=== PATIENT | male | born 1970 | race Caucasian/White ===

== ENCOUNTER 2016-12-11 18:41 | Emergency (ER) | payer SELFPAY ==
[~2016-12-11] VITALS: Ht 180.3 cm; Wt 100.0 kg
[~2016-12-11 18:41] MED LIST: QUET1TAB65 PO
[2016-12-11 18:42] VITALS: BP 174/109; PULSE 89; RESP 16; TEMP 98.3; O2SAT 98
--- NOTE | 2016-12-11 19:18 | PD ---
HPI Chief Complaint: Psychiatric Symptoms Time Seen by Provider: 18:54 Travel History International Travel<30 days: No Contact w/Intl Traveler<30days: No Traveled to known affect area: No History of Present Illness HPI 46-year-old male here for evaluation because he believes that there is a wire in his ear that extends down his neck. He tells me that this wire was placed by the [employer] 15 years ago, however he only found out about it today. He states he knows that there is a wire in his ear because he hears voices in his left ear that told him to go to the emergency department to have it removed. He also tells me that there are cameras outside videotaping him. When questioned about his psychiatric history, the patient is denying any history, however chart review shows that the patient was here in 2010 requesting a refill for cervical. He admits to taking Seroquel the past, however states he has not been on it for a long time. He admits to smoking marijuana occasionally and drinking alcohol occasionally, denies any other illicit drug use. He denies suicidal or homicidal ideation. Patient also became very defensive when questioned about psychiatric history stating that his symptoms are real and that there is really a wire in his neck, and that they are not psychiatric related. PFSH Past Medical History Medical History: Denies Significant Hx Diminished Hearing: No Tetanus Vaccination: Unknown Influenza Vaccination: No Past Surgical History Surgical History: No Previous Surgery Social History Alcohol Use: No Tobacco Use: No Substance Use: No Allergies-Medications (Allergen,Severity, Reaction): Coded Allergies: No Known Allergies (Verified , 12/12/10) Reported Meds & Prescriptions Reported Meds & Active Scripts Active Seroquel (Quetiapine Fumarate) 200 Mg Tab 200 Mg PO HS 21 Days Seroquel (Quetiapine Fumarate) 200 Mg Tab 200 Mg PO HS Review of Systems Except as stated in HPI: all other systems reviewed are Neg Physical Exam Narrative GENERAL: Well-developed, well-nourished, sitting comfortably on stretcher, no apparent distress. SKIN: Focused skin assessment warm/dry. Tattoos throughout body. No rashes. HEAD: Atraumatic. Normocephalic. EYES: Pupils equal and round. No scleral icterus. No injection or drainage. ENT: No nasal bleeding or discharge. Mucous membranes pink and moist. Bilateral tympanic membranes and external auditory canals are normal. NECK: Trachea midline. No JVD. No nuchal rigidity. CARDIOVASCULAR: Regular rate and rhythm. RESPIRATORY: No accessory muscle use. Clear to auscultation. Breath sounds equal bilaterally. GASTROINTESTINAL: Abdomen soft, non-tender, nondistended. MUSCULOSKELETAL: No obvious deformities. No clubbing. No cyanosis. No edema. NEUROLOGICAL: Awake and alert. No obvious cranial nerve deficits. Motor grossly within normal limits. Normal speech. PSYCHIATRIC: Paranoid thoughts. Data Data Last Documented VS Vital Signs Date Time Temp Pulse Resp B/P Pulse Ox O2 Delivery O2 Flow Rate FiO2 12/11/16 18:51 16 12/11/16 18:42 98.3 89 174/109 98 Orders Complete Blood Count With Diff (12/11/16 19:10) Comprehensive Metabolic Panel (12/11/16 19:10) Psych Screen (12/11/16 19:10) Drug Screen, Random Urine (12/11/16 19:10) Alcohol (Ethanol) (12/11/16 19:10) Salicylates (Aspirin) (12/11/16 19:10) Tylenol (Acetaminophen) (12/11/16 19:10) MDM Medical Decision Making Medical Screen Exam Complete: Yes Emergency Medical Condition: Yes Medical Record Reviewed: Yes Differential Diagnosis Acute suyapa, auditory hallucinations, paranoia, Narrative Course After evaluating the patient, there are no abnormalities in his neck. There is no evidence of foreign body in his left ear. Patient was made aware of this. He does appear to be very paranoid and slightly manic. The patient adamantly denies that his symptoms are psychiatric related. He is denying suicidal or homicidal ideation. I explained to him that I would like to help him and would also like for a psychiatrist to speak with him regarding his symptoms. After leaving the exam room, the patient commonly walked out of the emergency department. He was not under Peter act, and he is denying suicidal or homicidal ideation. Diagnosis Primary Impression: Left against medical advice Disposition: 07 AGAINST MEDICAL ADVICE Condition: Stable Delta Meek MD Dec 11, 2016 19:18
== END 2016-12-11 19:10 | disposition left against medical advice (07) ==
LOC: NEPD 18:41
DX: Z53.21 Procedure and treatment not carried out due to patient leaving prior to being seen by health care provider (principal)
CPT/HCPCS: 99281